=== PATIENT | male | born 1940 | race Asian ===

== ENCOUNTER 2016-08-31 09:18 | Outpatient (CLI) | payer MEDICARE ==
[2016-08-31 13:57] LABS: Uric Acid 5.8 mg/dL (3.5-7.6)
== END 2016-08-31 09:19 | disposition home or self-care (01) ==
LOC: LABHHL 09:18
PROVIDERS: ATTEND Internal Medicine
DX: I10 Essential (primary) hypertension (principal); E78.5 Hyperlipidemia, unspecified; R97.20 Elevated prostate specific antigen [PSA]; Z79.899 Other long term (current) drug therapy
CPT/HCPCS: 36415; 80061; 83036; 84550

== ENCOUNTER 2018-05-29 09:02 | Outpatient (CLI) | payer MEDICARE ==
[2018-05-29 10:29] LABS: Hematocrit 45.7 % (35.5-45.6); Hemoglobin 15.7 gm/dl (11.8-15.2); Mean Corpuscular HGB Conc 34 % (32-34); Mean Corpuscular Volume 88 fl (84-94); Platelet Count 167 K/mm3 (140-440); Red Blood Count 5.23 M/mm3 (3.65-5.03); Red Cell Distribution Width 13.7 % (13.2-15.2)
[2018-05-29 10:48] LABS: Alanine Aminotransferase 15 units/L (7-56); Albumin 4.2 g/dL (3.9-5); BUN/Creatinine Ratio 14; Blood Urea Nitrogen 11 mg/dL (9-20); Hemolysis Index 2
== END 2018-05-29 09:03 | disposition home or self-care (01) ==
LOC: LAB 09:02
PROVIDERS: ATTEND Internal Medicine
DX: Z00.01 Encounter for general adult medical examination with abnormal findings (principal); E78.5 Hyperlipidemia, unspecified; I10 Essential (primary) hypertension; I44.7 Left bundle-branch block, unspecified
CPT/HCPCS: 36415; 80053; 82306; 82607; 85027

== ENCOUNTER 2018-12-12 08:51 | Outpatient (CLI) | payer MEDICARE ==
[2018-12-12 11:26] LABS: Chol/HDL Ratio 2.81 %
== END 2018-12-12 08:52 | disposition home or self-care (01) ==
LOC: LAB 08:51
PROVIDERS: ATTEND Internal Medicine
DX: Z13.1 Encounter for screening for diabetes mellitus (principal); E78.5 Hyperlipidemia, unspecified; I10 Essential (primary) hypertension; Z79.899 Other long term (current) drug therapy
CPT/HCPCS: 36415; 80061; 83036

== ENCOUNTER 2021-07-08 09:32 | Outpatient (CLI) | payer MEDICARE ==
[2021-07-08 11:00] LABS: Chol/HDL Ratio 2.77 %
== END 2021-07-08 09:33 | disposition home or self-care (01) ==
LOC: LAB 09:32
PROVIDERS: ATTEND Internal Medicine
DX: R73.03 Prediabetes (principal); E78.5 Hyperlipidemia, unspecified
CPT/HCPCS: 36415; 80061; 83036